=== PATIENT | female | born 1960 | race Caucasian/White ===

== ENCOUNTER → 2019-04-12 | Outpatient (CLI) | payer BC ==
[~2019-04-12] MED LIST: ADIPEX-P37.5 M1 PO; ADIPEX-P37.5 MG PO; ADVAIR 250/28 DISKU1 IH; ADVAIR 500/28 DISKU1 IH; CALCIUM1 CAP PO; COMBIVENT INH14.7 GM IH; FASTIN30 MG PO; FEMIRON20 MG PO; FLONASE NASAL S16 GM NS; NEXIUM 40MG40 MG PEG; PHENTERMINE HCL15 MG PO; PHENTERMINE15 MG; PREDNISONE10 MG PO; PREDNISONE20 MG PO; PRILOSEC 20MG20 MG PO; PROVENTIL0.09 MG/A1 IH; RT ADVAIR 228 DISKUS IH; RT ALBUTER2.5 MG/0.5 IH; SINGULAIR 110 MG/TAB PO; SINGULAIR10 MG PO; TESSALON PERLE100 MG PO; VITAMIN D1000 IU PO
== END ==
LOC: MC.RAD 02-18 16:15
DX: Z12.31 Encounter for screening mammogram for malignant neoplasm of breast (principal); Z98.82 Breast implant status

== ENCOUNTER 2021-04-06 14:10 | Outpatient (CLI) | payer BC ==
[2021-04-06] VITALS (8 sets, daily range): BP systolic 110–134; BP diastolic 68–79; PULSE 75–95; TEMP 98.6
[~2021-04-06] VITALS: Ht 170.2 cm; Wt 90.9 kg
[2021-04-06] MEDS ORDERED: CRESTOR5 MG PO (16:38)
== END 2021-04-06 16:24 ==
LOC: EUO 14:10
DX: U07.1 COVID-19 (principal)
CPT/HCPCS: M0247; Q0247

== ENCOUNTER → 2023-07-29 | Outpatient (CLI) | payer BC ==
[~2023-07-29] MED LIST changes: +CRESTOR5 MG PO
== END ==
LOC: MC.RAD 09:19
DX: Z12.31 Encounter for screening mammogram for malignant neoplasm of breast (principal)